=== PATIENT | female | born 1950 | race Caucasian/White ===

== ENCOUNTER 2019-04-01 09:11 | Emergency (ER) | payer MEDICARE ==
[2019-04-01 09:20] VITALS: BP 134/80
--- NOTE | 2019-04-01 09:31 | UC ---
Ear Complaint HPI - HPI Summary HPI Summary: Patient is a 68-year-old female who presents to the urgent care requesting years to be flushed. She reports that she has ear plugs with cerumen. She has tried taking [id number] medications and is not working. She reports decreased hearing. She denies any pain, fevers or chills. She has no complaints - History of Current Complaint Chief Complaint: UCEar Stated Complaint: EAR COMPLAINT Time Seen by Provider: 04/01/19 09:26 Hx Obtained From: Patient ?: No Onset/Duration: Gradual Onset Severity Initially: Mild Pain Intensity: 0 - Allergies/Home Medications Allergies/Adverse Reactions: Allergies Allergy/AdvReac Type Severity Reaction Status Date / Time No Known Allergies Allergy Verified 04/01/19 09:21 Home Medications: Home Medications Ramipril 1 tab PO DAILY 04/01/19 [History Confirmed 04/01/19] PMH/Surg Hx/FS Hx/Imm Hx Previously Healthy: Yes - Surgical History Surgical History: Yes Surgery Procedure, Year, and Place: vulvar surg - Family History Known Family History: Positive: Non-Contributory - Social History Alcohol Use: Occasionally Substance Use Type: None Smoking Status (MU): Never Smoked Tobacco Review of Systems All Other Systems Reviewed And Are Negative: Yes Constitutional: Positive: Negative Skin: Positive: Negative Eyes: Positive: Negative ENT: Positive: Other - Ear wax Respiratory: Positive: Negative Cardiovascular: Positive: Negative Gastrointestinal: Positive: Negative Genitourinary: Positive: Negative Motor: Positive: Negative Neurovascular: Positive: Negative Musculoskeletal: Positive: Negative Neurological: Positive: Negative Psychological: Positive: Negative Is Patient Immunocompromised?: No Physical Exam - Summary Physical Exam Summary: Vital signs: Reviewed Gen.: Patient is an obese female in no acute distress. Patient is sitting comfortably on the stretcher. Head: Normacephalic and atraumatic Eyes: PERRLA, EOMI x2. Ears: Right ear canal with wax plugs. Left ear canal with wax plugs. Nose Nose with dry mucosa and clear discharge. No sinus tenderness and mouth: No pharyngeal erythema Neck: Supple, no bilateral submandibular and anterior cervical lymphadenopathy. No JVD Lungs: CTA B/L CVS: S1 & S2 present. No murmurs appreciated. ABDOMEN: Soft NT w/ positive BS. EXT: FROM x 4 NEURO: A+O X 3. Triage Information Reviewed: Yes Appearance: Well-Appearing Vital Signs: Initial Vital Signs Temp 98 F 04/01/19 09:18 Pulse 98 04/01/19 09:18 Resp 16 04/01/19 09:18 BP 134/80 04/01/19 09:18 Pulse Ox 100 04/01/19 09:18 Vital Signs Reviewed: Yes Ear Complaint Course/Dx - Course Course Of Treatment: Ear wax was removed. The patient reports hearing back. She is feeling better. She will be discharged home with follow-up with primary care physician. - Differential Dx/Diagnosis Provider Diagnosis: Impacted ear wax Discharge ED - Sign-Out/Discharge Documenting (check all that apply): Patient Departure All imaging exams completed and their final reports reviewed: No Studies - Discharge Plan Condition: Stable Disposition: HOME Patient Education Materials: Cerumen Impaction (ED) Referrals: Jocelyn Melendez MD [Primary Care Provider] - Additional Instructions: Follow with primary care physician as needed. - Billing Disposition and Condition Condition: STABLE Disposition: Home
== END 2019-04-01 10:04 | disposition home or self-care (01) ==
LOC: UCEAST 09:11
DX: H61.20 Impacted cerumen, unspecified ear (principal)
CPT/HCPCS: 99213; G0463